=== PATIENT | female | born 1980 | race African-American/Black ===

== ENCOUNTER 2017-06-04 15:54 | Emergency (ER) | payer MEDICAID, OTHER ==
[~2017-06-04] VITALS: Ht 149.9 cm; Wt 65.8 kg
[~2017-06-04 15:54] MED LIST: CIPRO500 MG PO; DIFLUCAN50 MG ORAL; IBUPROFEN600 MG ORAL; NORCO 5-325 TA1 EACH ORAL; NORCO 5-325 TA1 EACH PO; ONDANSETRON ODT4 MG ORAL; no meds
[2017-06-04] MEDS ORDERED: NKM (16:13)
[2017-06-04 16:19] VITALS: BP 106/69
[2017-06-04 16:43] LABS: APPEARANCE,URINE CLEAR; BILIRUBIN, URINE NEGATIVE (NEGATIVE); COLOR,URINE PALE YELLOW; GLUCOSE, URINE (UA) NEGATIVE (NEGATIVE); KETONES,URINE NEGATIVE (NEGATIVE); LEUKOCYTE ESTERASE ,URINE NEGATIVE (NEGATIVE); NITRITE,URINE NEGATIVE (NEGATIVE); PH,URINE 6 (4.5-8.0); PROTEIN,URINE NEGATIVE (NEGATIVE); UROBILINOGEN,URINE NORMAL MG/DL (0.0-1.0)
[2017-06-04] MEDS ORDERED: Promethazine/Codeine 5ml UD ORAL ONE (16:45)
[2017-06-04 17:47] LABS: BASOPHILS % (AUTO) 1.8 % (0.0-2.0); EOSINOPHILS % (AUTO) 1.4 % (0.0-3.0); HEMOGLOBIN 12.4 G/DL (12.0-16.0); LYMPHOCYTES % (AUTO) 28.7 % (20.0-45.0); MEAN CORPUSCULAR VOLUME 89 FL (80-99); MONOCYTES % (AUTO) 8.4 % (1.0-10.0); NEUTROPHILS % (AUTO) 59.7 % (45.0-75.0); PLATELET COUNT 453 K/UL (150-450); RED BLOOD COUNT 4.52 M/UL (4.20-5.40); RED CELL DISTRIBUTION WIDTH 12.6 % (11.6-14.8); WHITE BLOOD COUNT 12.6 K/UL (4.8-10.8)
[2017-06-04 18:04] LABS: ANION GAP 10 mmol/L (5-15); BLOOD UREA NITROGEN 13 mg/dL (7-18); CALCIUM 8.9 MG/DL (8.5-10.1); CARBON DIOXIDE 23 MMOL/L (21-32); CHLORIDE 104 MMOL/L (98-107); CREATININE 0.8 MG/DL (0.55-1.30); POTASSIUM 4.6 MMOL/L (3.5-5.1); SODIUM 137 MMOL/L (136-145)
[2017-06-04 18:08] LABS: ALANINE AMINOTRANSFERASE 14 U/L (12-78); ALBUMIN 3.7 G/DL (3.4-5.0); ALBUMIN/GLOBULIN RATIO 0.9 (1.0-2.7); ALKALINE PHOSPHATASE 45 U/L (46-116); ASPARTATE AMINO TRANSFERASE 11 U/L (15-37); BILIRUBIN,TOTAL 0.3 MG/DL (0.2-1.0)
--- NOTE | 2017-06-04 18:47 | Emergency Room Report ---
History of Present Illness General Chief Complaint: Flu Like Symptoms Source: Patient Present Illness HPI 36 YO Female presents to the ED c/o of 10 in severity Right -sided adnexal pain, Reports intermittent cough denies fevers, chills, nausea, vomiting, constipation, diarrhea. She denies history of ovarian cysts,PID, STD or painful menstrual cycles. She denies dysuria, frequency, urgency, or hematuria. She denies vaginal discharge or bleeding. She states she does not know whether she is she is not currently trying to become .Denies CP, Palpitations, LOC, AMS, dizziness, Changes in Vision, Sensation, paresthesias, or a sudden severe headache. Allergies: Coded Allergies: No Known Allergies (Verified Allergy, Unknown, 03/21/08) Patient History Past Medical History: see triage record Past Surgical History: none Pertinent Family History: none Last Menstrual Period: 05/08/2018 Now: No Reviewed Nursing Documentation: PMH: Agreed, PSxH: Agreed Nursing Documentation-PMH Past Medical History: No Stated History Hx Cancer: Yes Hx Gastrointestinal Problems: No Hx Neurological Problems: No Review of Systems All Other Systems: negative except mentioned in HPI Physical Exam Vital Signs Date Time Temp Pulse Resp B/P (MAP) Pulse Ox O2 Delivery O2 Flow Rate FiO2 06/04/17 16:09 99.1 67 16 106/69 99 Room Air Sp02 EP Interpretation: reviewed, normal General Appearance: no apparent distress, alert, GCS 15, non-toxic Head: normocephalic, atraumatic Eyes: bilateral eye normal inspection, bilateral eye PERRL ENT: hearing grossly normal, normal voice Neck: full range of motion Respiratory: chest non-tender, lungs clear, normal breath sounds, speaking full sentences Cardiovascular #1: regular rate, rhythm Gastrointestinal: normal bowel sounds, non tender, soft, other - tenderness to lower right adnexa, negative kumari's or rosvign's. Rectal: deferred Genitourinary: normal inspection, other - Right adnexal TTP, no swelling, no LAD, no lesions. Musculoskeletal: back normal, gait/station normal, normal range of motion, non- tender Neurologic: alert, oriented x3, responsive, motor strength/tone normal, sensory intact, speech normal, grossly normal Psychiatric: judgement/insight normal Skin: normal color, no rash, warm/dry, well hydrated Lymphatic: no adenopathy Medical Decision Making PA Attestation Dr. deleon is my supervising Physician whom patient management has been discussed with. Diagnostic Impression: Primary Impression: Qualified Codes: Z3A.01 - Less than 8 weeks gestation of Additional Impressions: abdominal pain Threatened Cough ER Course 36 YO Female presents to the ED c/o of 8/10 in severity Right -sided adnexal pain, Reports intermittent cough denies fevers, chills, nausea, vomiting, constipation, diarrhea. She denies history of ovarian cysts,PID, STD or painful menstrual cycles. She denies dysuria, frequency, urgency, or hematuria. She denies vaginal discharge or bleeding. She states she does not know whether she is she is not currently trying to become .Denies CP, Palpitations, LOC, AMS, dizziness, Changes in Vision, Sensation, paresthesias, or a sudden severe headache. Ddx considered but are not limited to Diverticulitis, acute appy, ovarian torsion, ectopic , PID tubo-ovarian abscess, ovarian cyst just to name a few. Vital signs: are WNL, pt. is afebrile H&PE are most consistent with possible ovarian cyst, however due to presentation will r/o torsion, ectopic, and stone. ORDERS: -CBC, CMP: unremarkable -UA: unremarkable -URINE HC -Pelvic US Complete: Inconclusive-There is a 4 mm right adnexal mass unable to determine cystic versus ectopic. Small amount of free fluid in the uterus however unable to determine IUP versus ectopic. ED INTERVENTIONS: - Tylenol PO I contacted [employer] Dr. He for Consult: he who stated as long as patient's vital signs are stable, and she is nontoxic in appearance that she is safe to followup with [facility] for repeat beta-hCG and ultrasound imaging. DISCHARGE: At this time pt. is stable for d/c to home. Will provide printed patient care instructions, and any necessary prescriptions. Care plan and follow up instructions have been discussed with the patient prior to discharge. Labs Test 06/04/17 16:16 06/04/17 17:22 Urine Color Pale yellow Urine Appearance Clear Urine pH 6 (4.5-8.0) Urine Specific [place] 1.020 (1.005-1.035) Urine Protein Negative (NEGATIVE) Urine Glucose (UA) Negative (NEGATIVE) Urine Ketones Negative (NEGATIVE) Urine Occult Blood 3+ (NEGATIVE) Urine Nitrite Negative (NEGATIVE) Urine Bilirubin Negative (NEGATIVE) Urine Urobilinogen Normal MG/DL (0.0-1.0) Urine Leukocyte Esterase Negative (NEGATIVE) Urine RBC 2-4 /HPF (0 - 2) Urine WBC 0-2 /HPF (0 - 2) Urine Squamous Epithelial Cells Few /LPF (NONE/OCC) Urine Bacteria Few /HPF (NONE) Urine HCG, Qualitative Positive White Blood Count 12.6 K/UL (4.8-10.8) Red Blood Count 4.52 M/UL (4.20-5.40) Hemoglobin 12.4 G/DL (12.0-16.0) Hematocrit 40.0 % (37.0-47.0) Mean Corpuscular Volume 89 FL (80-99) Mean Corpuscular Hemoglobin 27.5 PG (27.0-31.0) Mean Corpuscular Hemoglobin Concent 31.0 G/DL (32.0-36.0) Red Cell Distribution Width 12.6 % (11.6-14.8) Platelet Count 453 K/UL (150-450) Mean Platelet Volume 5.7 FL (6.5-10.1) Neutrophils (%) (Auto) 59.7 % (45.0-75.0) Lymphocytes (%) (Auto) 28.7 % (20.0-45.0) Monocytes (%) (Auto) 8.4 % (1.0-10.0) Eosinophils (%) (Auto) 1.4 % (0.0-3.0) Basophils (%) (Auto) 1.8 % (0.0-2.0) Sodium Level 137 MMOL/L (136-145) Potassium Level 4.6 MMOL/L (3.5-5.1) Chloride Level 104 MMOL/L (98-107) Carbon Dioxide Level 23 MMOL/L (21-32) Anion Gap 10 mmol/L (5-15) Blood Urea Nitrogen 13 mg/dL (7-18) Creatinine 0.8 MG/DL (0.55-1.30) Estimat Glomerular Filtration Rate > 60 mL/min (>60) Glucose Level 86 MG/DL (74-106) Calcium Level 8.9 MG/DL (8.5-10.1) Total Bilirubin 0.3 MG/DL (0.2-1.0) Aspartate Amino Transf (AST/SGOT) 11 U/L (15-37) Alanine Aminotransferase (ALT/SGPT) 14 U/L (12-78) Alkaline Phosphatase 45 U/L (46-116) Total Protein 7.9 G/DL (6.4-8.2) Albumin 3.7 G/DL (3.4-5.0) Globulin 4.2 g/dL Albumin/Globulin Ratio 0.9 (1.0-2.7) Human Chorionic Gonadotropin, Qual Positive Human Chorionic Gonadotropin, Quant 440 mIU/mL (1-6) Last Vital Signs Date Time Temp Pulse Resp B/P (MAP) Pulse Ox O2 Delivery O2 Flow Rate FiO2 06/04/17 18:43 99.1 72 16 113/72 99 Room Air Disposition: HOME, SELF-CARE Condition: Stable Physician Consult: Dr. Neri Messer Vit #91/Fe Fum/Fa/Dha ( + DHA COMBO PACK) 1 Each Combo..pkg 1 EACH PO DAILY, #1 PACK Prov: Shanell Castaneda 06/04/17 Guaifenesin/Dextromethorphan (ROBITUSSIN COUGH-CHEST DM LIQ) 237 Ml Liquid 10 ML PO Q6HR, #237 ML Prov: Shanell Castaneda 06/04/17 Acetaminophen* (TYLENOL EXTRA STRENGTH*) 500 Mg Tablet 500 MG ORAL Q6H, #20 TAB 0 Refills Prov: Shanell Castaneda 06/04/17 Referrals: [facility],REFERRING (PCP) Patient Instructions: Abdominal Pain During , [id number] Additional Instructions: Take medications as directed. Follow up with a OBGYN within 72 hours, even if your symptoms have resolved. your Hcg Quant was 405 today, unable to determine IUP on US at this time. Return sooner to ED if new symptoms occur, or current symptoms become worse. - Please note that this Emergency Department Report was dictated using [employer] validation consultant technology software, occasionally this can lead to erroneous entry secondary to interpretation by the dictation equipment. Shanell Castaneda Jun 04, 2017 18:47
[2017-06-04 20:00] VITALS: BP 114/79
[2017-06-04] MEDS ORDERED: ROBITUSSIN COU237 M1 PO (20:38)
[2017-06-04] MEDS ORDERED: TYLENOL EXTRA500 MG ORAL (20:38)
[2017-06-04] MEDS ORDERED: PRENATAL + DHA1 EAC1 PO (20:38)
[2017-06-04 20:49] VITALS: BP 114/79
--- NOTE | 2017-06-05 09:59 | Diagnostic Imaging Report ---
Indication: Pain. Last menstrual period 05/08/2017 Technique: Transabdominal and endovaginal pelvic ultrasound was performed. Findings: Uterus measures 8.9 x 5.1 x 6.2 cm. Endometrium measures 15 mm in thickness. There is questionable decidual reaction with possible tiny intrauterine gestational sac. There is a hypoechoic structure in the right aspect of the uterus which measures up to 1.4 cm and may possibly represent a fibroid. Small cystic structures noted in the cervix compatible with nabothian cysts. The right ovary measures 3.9 x 2 cm x 3.2 cm. There is a cystic structure in the right adnexa which may represent a corpus ileum cysts however ectopic is not entirely excluded Vascular flow to the right ovary is documented. The left ovary measures 3 x 2 x 1.3 cm/4 mL. No free pelvic fluid identified. Impression: Possible decidual reaction with possible tiny gestational sac in the uterus. Cystic structure in the right ovary. Corpus luteum is likely however given lack of definitive intrauterine gestation, ectopic not entirely excluded. Clinical correlation and short-term interval follow-up exam/trended beta-hCG recommended. No evidence to suggest ovarian torsion at this time. Possible 1.4 cm uterine fibroid. Nabothian cysts. This corresponds with the preliminary report issued by the nuclear cardiology technologist as well as the preliminary interpretation documented in the electronic medical record by the treating ER clinician.
== END 2017-06-04 19:11 | disposition home or self-care (01) ==
LOC: EMR 17:10
DX: O20.0 Threatened abortion (principal); O26.891 Other specified pregnancy related conditions, first trimester; R05 Cough; N88.8 Other specified noninflammatory disorders of cervix uteri
CPT/HCPCS: 36415; 76856; 80053; 81003; 81025; 84702; 84703; 85025; 86900; 86901; 99284